=== PATIENT | female | born 1990 | race Caucasian/White ===

== ENCOUNTER 2017-10-19 21:27 | Emergency (ER) | payer MEDICAID, SELFPAY ==
[2017-10-19 21:28] VITALS: BP 109/72; PULSE 88; RESP 16; TEMP 36.8; O2SAT 99; BMI 15.5
--- NOTE | 2017-10-19 21:43 | ED.VISSUMM ---
- ER Visit Summary Date of Service: 10/19/17 Chief Complaint: Bee sting History of Present Illness: The patient is a 27 F [id number] presenting with a bee sting to her left index finger 5 hours ago at home. Denies shortness of breath or rash. Mild pain and swelling of her left index finger Physical Examination: Very superficial bee sting noted at the left index finger palmar surface. No swelling at all. No erythema or warmth. Normal distal neurovascular examination Test Results: None performed Emergency Department Course and Treatment: She was given oral prednisone and Benadryl. She will keep her hand elevated and come back if worse Treatment Plan: Oral medications Disposition: Home stable condition Impression: Initial encounter local reaction to bee sting left index finger This note was generated with [employer] dictation software. It may contain incorrect words, spelling, and punctuation that were not noted in review of the chart prior to signing ED Disposition - Plan for ED Patient: Chief Complaint: Bite Instructions: ED Bite Sting Insect Gen Allergic React Prescriptions: DiphenhydrAMINE [Benadryl] 25 mg PO TID PRN PRN #20 capsule PRN Reason: Rash/Topical Irritation Prednisone [Deltasone] 40 mg PO DAILY #10 tablet Referrals: Care Physician,No Primary [Primary Care Provider] -
[2017-10-19 21:49] VITALS: RESP 18; O2SAT 98
[2017-10-19] MEDS: DiphenhydrAMINE 25 MG Capsule PO (21:49)
[2017-10-19] MEDS: predniSONE 20 MG Tablet 60 MG PO (21:49)
== END 2017-10-19 21:55 | disposition home or self-care (01) ==
LOC: ED 21:43
PROVIDERS: Emergency Provider Emergency Medicine
DX: T63.441A Toxic effect of venom of bees, accidental (unintentional), initial encounter (principal); Y92.9 Unspecified place or not applicable
CPT/HCPCS: 99283

== ENCOUNTER 2017-10-31 08:16 | Emergency (ER) | payer MEDICAID, SELFPAY ==
[2017-10-31 08:17] VITALS: BP 121/88; PULSE 102; RESP 16; TEMP 36.3; O2SAT 99; BMI 15.4
--- NOTE | 2017-10-31 08:47 | ED.VIS.GEN ---
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 Narrative: Admits that she is coughing a lot. Nonproductive. Initially complains of dyspnea, but only because her nose is clogged. No wheezing. No fevers. Mild sore throat. No earache. No GI symptoms or abdominal discomfort or chest discomfort. Smoker. No medical problems. Past Medical History - Allergies and Home Meds Allergies/Adverse Reactions: Allergies amoxicillin Allergy (Verified 10/19/17 21:30) Hives Primary Care Physician: Care Physician,No Primary [Primary Care Provider] - Past Medical History: None Smoking Status: Current every day smoker Review of Systems General: Denies: Chills, Fever Eyes: Denies: Visual changes - bilaterally, Diplopia ENT: Reports: Rhinorrhea, Sore throat. Denies: Bilateral ear pain Cardiovascular: Denies: Chest pain Respiratory: Reports: Cough. Denies: Sputum, Dyspnea on exertion Gastrointestinal: Denies: Abdominal pain, Nausea, Vomiting Musculoskeletal: Denies: Myalgias, Arthralgias, Neck pain, Swelling, Extremity Pain Skin: Denies: Rash Neurological: Denies: Headache Physical Exam Vital Signs/Narrative: Vital Signs Temp Pulse Resp BP Pulse Ox 10/31/17 08:17 97.4 F L 102 H 16 121/88 H 99 Inital Vital Signs reviewed: Yes General: Well nourished, Well developed, - - Well-appearing, NAD Head: Normocephalic, Atraumatic Eyes: Perrl, EOMI ENT: Moist mucous membranes, No rhinorrhea, TM's clear, Nasal congestion. Negative for: Sinus tenderness Neck: Supple, Nontender, No lymphadenopathy Cardiovascular: Regular rate, Regular rhythm, No murmurs. Negative for: Tachycardia Respiratory: No distress, CTA bilaterally, Chest nontender Abdomen: Soft, Nontender, Nondistended, Normal bowel sounds Skin: Normal color, No rash Neurological: Alert, Oriented x3, Cranial nerves II-XII grossly intact, Normal Strength, Normal Sensation Psychological: Normal affect Diagnostic/Tx/Re-eval - Medical Decision Making Consistent with viral bronchitis. This is likely causing a small amount of blood. Pulse ox is good. Lungs are clear. No chest x-ray indicated at this time. Advised to follow-up and given contact. Supportive care advised. ED Disposition - Plan for ED Patient: Disposition: Home or Assisted Living Chief Complaint: Cold Sx Diagnosis: Acute bronchitis with bronchospasm Instructions: Acute Bronchitis Referrals: Shae Baker [NON-STAFF] - 1-2 Weeks (If not improving) Additional Instructions: Use either generic DayQuil/NyQuil, or Robitussin CF or generic equivalent.
== END 2017-10-31 09:15 | disposition home or self-care (01) ==
PROVIDERS: Emergency Provider Emergency Medicine
DX: J20.9 Acute bronchitis, unspecified (principal); F17.200 Nicotine dependence, unspecified, uncomplicated
CPT/HCPCS: 99282

== ENCOUNTER 2017-10-31 20:03 | Emergency (ER) | payer MEDICAID, SELFPAY ==
[2017-10-31 20:04] VITALS: BP 101/71; PULSE 118; RESP 18; TEMP 36.8; O2SAT 96; BMI 15.4
--- NOTE | 2017-10-31 21:28 | ED.DCSUM_ITS ---
- ER Visit Summary Date of Service: 10/31/17 Chief Complaint: dizzy, nausea/vomiting, URI sx History of Present Illness: The patient is a 27 F who was seen earlier today and diagnosed with a respiratory infection who presents again because she does not feel any better. She states he is to continue to have cough, rhinorrhea, congestion, sore throat and now is complaining of diffuse abdominal pain, nausea , vomiting ?3 and dysuria. She states the dysuria has been for 2 days, and she has itching and burning with urination. She did not mention this when she was seen this morning. Patient tried wini-dam-nhmtzut medications that she was instructed at her earlier visit but states she has not had any improvement. Patient denies . No medical problems. She does smoke. Physical Examination: Vital signs: afebrile, hemodynamically stable, no hypoxia on room air General: well nourished, well developed, in no distress Skin: warm, dry, no rash, no pallor HEENT: normocephalic and atraumatic; PERRL, EOMI, moist mucous membranes no posterior oropharyngeal lesions, exudate or swelling, neck is supple without meningismus, shotty anterior lymphadenopathy, no submandibular edema Cardiovascular: Tachycardic rate and rhythm without murmurs, no peripheral edema , 2+ pulses all distal extremities Respiratory: No increased work of breathing, lungs are clear to auscultation bilaterally, no rales, rhonchi or wheezing Abdominal: Abdomen is soft, nontender with normoactive bowel sounds, no guarding or rebound, no masses MSK: Moves all extremities, no deformities, normal strength Neuro: Awake and alert, oriented ?4. No facial droop, sensation and motor function intact and symmetric Test Results: Abnormal Lab Results 10/31/17 10/31/17 21:40 23:04 Urine Color Yellow Urine Clarity Cloudy Urine pH 6.0 Ur Specific [place] 1.025 Urine Protein Negative Urine Glucose (UA) 50 H Urine Ketones 5 H Urine Occult Blood Negative Urine Nitrite Negative Urine Bilirubin Negative Urine Urobilinogen 1 H Ur Leukocyte Esterase 25 H Urine RBC 0-5 SEEN Urine WBC 5-10 SEEN Ur Squamous Epith Cells 10-25 SEEN Urine Bacteria RARE Urine Mucus 0 SEEN Urine Yeast RARE POC Glucose 97 Emergency Department Course and Treatment: Patient presents for another evaluation after being seen this morning for cold symptoms. Patient states she tried ahmw-obz-dhobxwa medications today without any relief of her symptoms. We had a long discussion that it is going to take more than 1 day for her to feel better, and there is no way to take away all of her discomfort, but only to attempt to alleviate her symptoms. Patient complained of 2 days of urinary symptoms, which she did not mention this morning. Thus a urinalysis was performed. It showed glucose in the urine, thus a fingerstick glucose was performed that showed normal glucose of 97. Patient's urine was contaminated with epithelial cells and did not look concerning for acute UTI. She was given Zofran for her nausea. We discussed continued symptomatic treatment and that it will take several days for viral infections to heal, and there is no medication that will make them go away quicker. Patient left prior to receiving her discharge paperwork. Treatment Plan: [] Disposition: Discharge home Impression: Viral syndrome, subsequent visit This note was generated with [employer] dictation software. It may contain incorrect words, spelling, and punctuation that were not noted in review of the chart prior to signing ED Disposition - Plan for ED Patient: Disposition: Home or Assisted Living Chief Complaint: Dizziness Instructions: ED Viral Syndrome Referrals: Care Physician,No Primary [Primary Care Provider] - Additional Instructions: Please continue symptomatic treatment as you were advised this morning at your visit. Use Tylenol or Motrin as needed for pain or fever. Use over-the- counter cold medicines for cough, congestion and other cold symptoms. Follow- up with your doctor if you are not feeling better in 7-10 days. If you have any worsening of your condition or any new concerning symptoms, please return immediately to the emergency department for another evaluation.
[2017-10-31 21:47] LABS: Mucous, Urine 0 SEEN /hpf (<or=2+)
[2017-10-31 21:52] LABS: Color, Urine Yellow (Yellow); Glucose, Dipstick 50 mg/dl (Normal); Ketone-Dipstick 5 mg/dl (Negative); Leukocyte Esterase-Dipstick 25 /ul (Negative); Nitrite-Dipstick Negative (Negative); Occult Blood-Urine Negative /ul (Negative); Protein-Dipstick Negative (Negative); Specific Gravity, Urine 1.025 (1.002-1.030); Urine Bilirubin Dipstick Negative (Negative); Urine Clarity Cloudy (Clear); Urine Urobilinogen 1 mg/dl (Normal)
[2017-10-31 22:00] VITALS: RESP 18
[2017-10-31] MEDS: Ondansetron ODT 4 MG Tablet PO (22:04)
[2017-10-31 22:06] LABS: Red Blood Cells-Urine 0-5 SEEN /hpf (0-5); Yeast-Urine RARE /hpf (None Seen)
[2017-10-31 22:07] LABS: White Blood Cells 5-10 SEEN /hpf (0-5)
[2017-10-31 22:09] LABS: Bacteria RARE /hpf (None Seen); Squamous Epithelial Cells - UA 10-25 SEEN /hpf (5-10)
[2017-10-31 23:11] LABS: Bedside Glucose 97 mg/dL (70-110)
--- NOTE | 2017-10-31 23:20 | DCINST.ED_ITS ---
ED Disposition - Plan for ED Patient: Disposition: Home or Assisted Living Chief Complaint: Dizziness Instructions: ED Viral Syndrome Referrals: Care Physician,No Primary [Primary Care Provider] - Additional Instructions: Please continue symptomatic treatment as you were advised this morning at your visit. Use Tylenol or Motrin as needed for pain or fever. Use over-the- counter cold medicines for cough, congestion and other cold symptoms. Follow- up with your doctor if you are not feeling better in 7-10 days. If you have any worsening of your condition or any new concerning symptoms, please return immediately to the emergency department for another evaluation.
--- NOTE | 2017-10-31 23:24 | ED.RN ---
PT SEEN WALKING OUT OF ER ROOM. PT STATES TO RN I'M OUT AND LEFT THE DEPARTMENT PRIOR TO MD BEING ABLE TO GO OVER HER RESULTS AND D/C INSTRUCTIONS.
== END 2017-10-31 23:25 | disposition home or self-care (01) ==
PROVIDERS: Emergency Provider Emergency Medicine
DX: B34.9 Viral infection, unspecified (principal); R05 Cough; J34.89 Other specified disorders of nose and nasal sinuses; R09.81 Nasal congestion; J02.9 Acute pharyngitis, unspecified; R10.84 Generalized abdominal pain; R11.2 Nausea with vomiting, unspecified; R30.0 Dysuria; J20.9 Acute bronchitis, unspecified; F17.200 Nicotine dependence, unspecified, uncomplicated
CPT/HCPCS: 81001; 82962; 87086; 87088; 99282; 99284

== ENCOUNTER 2017-11-12 16:40 | Emergency (ER) | payer MEDICAID, SELFPAY ==
[2017-11-12 16:42] VITALS: BP 102/73; PULSE 82; RESP 14; TEMP 36.6; O2SAT 99; BMI 15.9
[2017-11-12 17:24] LABS: Color, Urine Yellow (Yellow); Glucose, Dipstick Normal (Normal); Ketone-Dipstick Negative (Negative); Leukocyte Esterase-Dipstick 25 /ul (Negative); Nitrite-Dipstick Negative (Negative); Occult Blood-Urine 150 /ul (Negative); Protein-Dipstick 15 mg/dl (Negative); Specific Gravity, Urine 1.025 (1.002-1.030); Urine Bilirubin Dipstick Negative (Negative); Urine Clarity Clear (Clear); Urine Urobilinogen Normal (Normal)
--- NOTE | 2017-11-12 17:24 | ED.DCSUM_ITS ---
- ER Visit Summary Date of Service: 11/12/17 Chief Complaint: Dysuria History of Present Illness: The patient is a 27 F with burning with urination for the past couple of weeks. She denies fever chills. No back pain. She thinks may be starting her period early as she is noted some spotting today. Last normal menstrual cycle was October 21. Patient denies vaginal discharge currently but does have history of trichomoniasis and gonorrhea. Physical Examination: Vital signs are unremarkable. Patient sitting upright in bed no acute distress. Heart is regular rate and rhythm. Lung sounds are clear. Abdomen is soft and nontender. Back examination reveals no CVA tenderness. Test Results: Urinalysis reveals no sign of acute infection. She has 0-5 white cells, 0-5 RBCs, 5-10 epithelials. Urine test along with gonorrhea and chlamydia have been sent. Patient does not wish to wait for those results and she will be called if there are any abnormalities. Emergency Department Course and Treatment: Results of the urinalysis are discussed. Patient will be called if there is any abnormalities on the remaining tests that are pending. Treatment Plan: [] Disposition: Discharge Impression: Dysuria This note was generated with [employer] dictation software. It may contain incorrect words, spelling, and punctuation that were not noted in review of the chart prior to signing ED Disposition - Plan for ED Patient: Chief Complaint: Complaint Referrals: Care Physician,No Primary [Primary Care Provider] -
[2017-11-12 17:54] LABS: Bacteria RARE /hpf (None Seen); Mucous, Urine RARE /hpf (<or=2+); Red Blood Cells-Urine 0-5 SEEN /hpf (0-5); Squamous Epithelial Cells - UA 5-10 SEEN /hpf (5-10); White Blood Cells 0-5 SEEN /hpf (0-5)
--- NOTE | 2017-11-12 18:11 | ED.DEP ---
ED Disposition - Plan for ED Patient: Disposition: Home or Assisted Living Chief Complaint: Complaint Instructions: ED Dysuria Uncertain Cause Referrals: Christina Bro MD [STAFF PHYSICIAN] - As Needed
[2017-11-12 18:35] LABS: Internal QC Validated? YES +Cl - CLEAR BKGD; Pregnancy, Urine Negative Negative
[2017-11-12 21:30] LABS: Chlamydia Trachomatis by PCR Negative (Negative); Neisserai gonorrhoeae by PCR Negative (Negative); Probe Check PASS; Sample Adequacy Control PASS; Specimen Processing Control PASS
== END 2017-11-12 18:27 | disposition home or self-care (01) ==
PROVIDERS: Emergency Provider Emergency Medicine
DX: R30.0 Dysuria (principal); N93.9 Abnormal uterine and vaginal bleeding, unspecified; R35.0 Frequency of micturition; Z86.19 Personal history of other infectious and parasitic diseases
CPT/HCPCS: 81001; 81025; 87491; 87591; 99282

== ENCOUNTER 2017-11-28 20:04 | Emergency (ER) | payer MEDICAID, SELFPAY ==
[2017-11-28 20:05] VITALS: BP 107/71; PULSE 99; RESP 16; TEMP 36.3; O2SAT 98; BMI 15.4
[2017-11-28 20:49] LABS: Mucous, Urine 0 SEEN /hpf (<or=2+); Red Blood Cells-Urine 0 SEEN /hpf (0-5)
[2017-11-28 20:54] LABS: Color, Urine Yellow (Yellow); Glucose, Dipstick Normal (Normal); Ketone-Dipstick Negative (Negative); Leukocyte Esterase-Dipstick 100 /ul (Negative); Nitrite-Dipstick Negative (Negative); Occult Blood-Urine 10 /ul (Negative); Protein-Dipstick Negative (Negative); Specific Gravity, Urine 1.025 (1.002-1.030); Urine Bilirubin Dipstick Negative (Negative); Urine Clarity Clear (Clear); Urine Urobilinogen Normal (Normal)
[2017-11-28 20:58] LABS: Internal QC Validated? YES +Cl - CLEAR BKGD; Pregnancy, Urine Negative Negative
[2017-11-28 21:04] LABS: Bacteria 1+ /hpf (None Seen); White Blood Cells 10-25 SEEN /hpf (0-5)
[2017-11-28 21:05] LABS: Squamous Epithelial Cells - UA 5-10 SEEN /hpf (5-10)
--- NOTE | 2017-11-28 21:28 | ED.VISSUMM ---
- ER Visit Summary Date of Service: 11/28/17 Chief Complaint: UTI History of Present Illness: The patient is a 27 F with lower abdominal pain, dysuria, and foul-smelling urine. Patient has had frequent urinary tract infections. She was recently treated with Bactrim and Flagyl. Her symptoms have seemed to recur over the last 2 months. No GI symptoms. Physical Examination: Afebrile and vital signs unremarkable. No acute distress. Alert and oriented. Abdomen soft and nontender. Back is nontender. Skin normal in color. Test Results: Urinalysis shows signs of infection. test was negative. Gonorrhea and Chlamydia testing are pending. Urine culture is pending. Emergency Department Course and Treatment: Patient has signs and symptoms of urinary tract infection. I suspect she was treated with Bactrim and was possibly resistant. I sent a culture. We will treat with Macrobid. Referred to Dr. Palmer as the patient is new to the area and does not have a primary doctor. Treatment Plan: As above Disposition: Discharged Impression: 1. UTI, cystitis This note was generated with [employer] dictation software. It may contain incorrect words, spelling, and punctuation that were not noted in review of the chart prior to signing ED Disposition - Plan for ED Patient: Chief Complaint: Complaint Referrals: Care Physician,No Primary [Primary Care Provider] -
--- NOTE | 2017-11-28 21:32 | ED.DEP ---
ED Disposition - Plan for ED Patient: Chief Complaint: Complaint Instructions: ED UTI Cystitis Female Prescriptions: Nitrofurantoin Macrocrystals [Macrobid] 100 mg PO Q12 #14 cap Referrals: Joanne Palmer MD [STAFF PHYSICIAN] -
[2017-11-28 21:39] VITALS: RESP 18
[2017-11-28] MEDS: Nitrofurantoin Macrocrystals 100 MG Capsule PO (21:39)
[2017-11-28 23:06] LABS: Chlamydia Trachomatis by PCR Negative (Negative); Neisserai gonorrhoeae by PCR Negative (Negative); Probe Check PASS; Sample Adequacy Control PASS; Specimen Processing Control PASS
== END 2017-11-28 21:40 | disposition home or self-care (01) ==
PROVIDERS: Emergency Provider Emergency Medicine
DX: N39.0 Urinary tract infection, site not specified (principal); Z87.440 Personal history of urinary (tract) infections; Z72.0 Tobacco use
CPT/HCPCS: 81001; 81025; 87086; 87088; 87186; 87491; 87591; 99283

== ENCOUNTER 2017-12-12 01:31 | Emergency (ER) | payer MEDICAID, SELFPAY ==
[2017-12-12 01:32] VITALS: BP 117/75; PULSE 89; RESP 15; TEMP 36.7; O2SAT 96; BMI 16.0
[2017-12-12 02:49] LABS: Bacteria 0 SEEN /hpf (None Seen); Color, Urine Yellow (Yellow); Glucose, Dipstick Normal (Normal); Ketone-Dipstick 5 mg/dl (Negative); Leukocyte Esterase-Dipstick 25 /ul (Negative); Mucous, Urine 0 SEEN /hpf (<or=2+); Nitrite-Dipstick Negative (Negative); Occult Blood-Urine 10 /ul (Negative); Protein-Dipstick 30 mg/dl (Negative); Red Blood Cells-Urine 0 SEEN /hpf (0-5); Urine Clarity Clear (Clear); Urine Urobilinogen 1 mg/dl (Normal); White Blood Cells 0 SEEN /hpf (0-5)
[2017-12-12 02:52] LABS: Urine Bilirubin Dipstick 1 mg/dL (Negative)
[2017-12-12 02:59] LABS: Squamous Epithelial Cells - UA 0-5 SEEN /hpf (5-10)
[2017-12-12 03:25] LABS: Probe Check PASS; Sample Adequacy Control PASS; Specimen Processing Control PASS; Trichomonas Vag DNA by PCR Negative (Negative)
[2017-12-12 03:50] LABS: Chlamydia Trachomatis by PCR Negative (Negative); Neisserai gonorrhoeae by PCR Negative (Negative); Specimen Processing Control PASS
[2017-12-12 03:51] LABS: Probe Check PASS; Sample Adequacy Control PASS
--- NOTE | 2017-12-12 04:13 | ED.VISSUMM ---
- ER Visit Summary Date of Service: 12/12/17 Chief Complaint: Vaginal itching History of Present Illness: The patient is a 27 F presenting for evaluation secondary to vaginal itching. Patient reports that over the course the last 2 months she has been dealing with issues of vaginal itching. Patient states that this came on gradually and has basically been continuous since then. Is associated with feelings of itching, hot flashes, and dysuria. Patient reports that she was seen in the emergency department was diagnosed as potentially having a urinary tract infection and went on a course of Macrobid. She reports that that did not seem to alleviate her symptoms. She went to urgent care recently and was placed on a course of Diflucan which did not seem to alleviate her symptoms. Patient denies that she is having any sort of vaginal discharge or bleeding. She denies any fevers or unintended weight loss. She states that she has not had a pelvic exam associated with this problem yet. Physical Examination: Physical exam unremarkable except for examination of the patient's pelvis. External exam shows vulvar erythema with some particulate matter stuck to the patient's vulva. Speculum exam shows some vaginal erythema with some thin whitish discharge and normal cervix. No evidence of cervicitis. Test Results: GC and chlamydia are negative, trichomonas is negative, urinalysis is negative Emergency Department Course and Treatment: Patient presented for evaluation secondary to vulvar itching that is been going on for 2 months. Testing as noted above was found to be negative. Patient at this point likely continues to have an element of undifferentiated vulvitis and vaginitis. I will place the patient on a course of steroid cream, but I recommended that she absolutely needs to follow-up with PRINCIPAL CLERK TYPIST as some vulvar cancers do present with a initial inflammatory component. She voiced understanding of this. Patient was discharged. Disposition: Discharge Impression: 1. Vaginitis and vulvitis This note was generated with [employer] dictation software. It may contain incorrect words, spelling, and punctuation that were not noted in review of the chart prior to signing ED Disposition - Plan for ED Patient: Disposition: Home or Assisted Living Chief Complaint: Female C/O Diagnosis: Vaginitis Instructions: Preventing Vaginitis, For Teens: Understanding Vaginitis Prescriptions: Flurandrenolide 60 gm TP BID #1 oint...g. Referrals: Javon Brewer MD [STAFF PHYSICIAN] - As soon as possible
--- NOTE | 2017-12-12 04:18 | ED.DCSUM_ITS ---
- ER Visit Summary Date of Service: 12/12/17 Chief Complaint: Vaginal itching History of Present Illness: The patient is a 27 F presenting for evaluation secondary to vaginal itching. Patient reports that over the course the last 2 months she has been dealing with issues of vaginal itching. Patient states that this came on gradually and has basically been continuous since then. Is associated with feelings of itching, hot flashes, and dysuria. Patient reports that she was seen in the emergency department was diagnosed as potentially having a urinary tract infection and went on a course of Macrobid. She reports that that did not seem to alleviate her symptoms. She went to urgent care recently and was placed on a course of Diflucan which did not seem to alleviate her symptoms. Patient denies that she is having any sort of vaginal discharge or bleeding. She denies any fevers or unintended weight loss. She states that she has not had a pelvic exam associated with this problem yet. Physical Examination: Physical exam unremarkable except for examination of the patient's pelvis. External exam shows vulvar erythema with some particulate matter stuck to the patient's vulva. Speculum exam shows some vaginal erythema with some thin whitish discharge and normal cervix. No evidence of cervicitis. Test Results: GC and chlamydia are negative, trichomonas is negative, urinalysis is negative Emergency Department Course and Treatment: Patient presented for evaluation secondary to vulvar itching that is been going on for 2 months. Testing as noted above was found to be negative. Patient at this point likely continues to have an element of undifferentiated vulvitis and vaginitis. I will place the patient on a course of steroid cream, but I recommended that she absolutely needs to follow-up with WILDLIFE ECOLOGIST as some vulvar cancers do present with a initial inflammatory component. She voiced understanding of this. Patient was discharged. Disposition: Discharge Impression: 1. Vaginitis and vulvitis This note was generated with [employer] dictation software. It may contain incorrect words, spelling, and punctuation that were not noted in review of the chart prior to signing ED Disposition - Plan for ED Patient: Disposition: Home or Assisted Living Chief Complaint: Female C/O Diagnosis: Vaginitis Instructions: Preventing Vaginitis, For Teens: Understanding Vaginitis Prescriptions: Flurandrenolide 60 gm TP BID #1 oint...g. Referrals: Javon Brewer MD [STAFF PHYSICIAN] - As soon as possible
== END 2017-12-12 04:35 | disposition home or self-care (01) ==
PROVIDERS: Emergency Provider Emergency Medicine; Family Provider Internal Medicine; PCP Internal Medicine
DX: N76.0 Acute vaginitis (principal); N76.2 Acute vulvitis; Z72.0 Tobacco use
CPT/HCPCS: 81001; 87491; 87591; 87661; 99282

== ENCOUNTER 2018-07-28 21:55 | Emergency (ER) | payer MEDICAID, SELFPAY ==
[2018-07-28 21:56] VITALS: BP 103/69; PULSE 89; RESP 16; TEMP 36.5; O2SAT 99; BMI 15.6
--- NOTE | 2018-07-28 22:19 | ED.DCSUM_ITS ---
- ER Visit Summary Date of Service: 07/28/18 Chief Complaint: Right-sided abdominal pain History of Present Illness: The patient is a 27 F no seen past medical or surgical history. Ab0. Quadrant. No associated nausea, vomiting or diarrhea. No dysuria. No abdominal trauma. No fever. He has had this pain before but has never had diagnosed. She is never had any abdominal surgeries other than a D&C and a tubal ligation. She denies any vaginal bleeding or discharge. Also states that she has had discomfort and numbness in her right arm right leg. Physical Examination: Well-appearing young female. Vital signs are stable and afebrile. H unremarkable. Neck nontender. Lungs to auscultation bilaterally. Heart regular rhythm no murmur. Abdomen is soft. Nondistended normal bowel sounds no peritoneal signs. Very mild tenderness on the right side of the abdomen both in the right upper quadrant and right mid. There is no ecchymosis or bruising. No distention. Normal bowel sounds. Soft. No [place] sign. No McBurney's point tenderness. No hernias or masses. Left side is nontender. Patient moving all 4 extremities. Neurovascular intact. 5-5 community outreach coordinator strength bilaterally. Dorsi and plantar flexion bilaterally. Normal DP and radial pulses. Normal range of motion. Normal strength and sensation. Back nontender. Neurologically she is awake alert with no focal motor or sensory deficits. She has normal touch sensation in both upper and lower extremities bilaterally. NIH score is 0. Test Results: CBC normal white count 6. Hemoglobin 12. Chemistries normal normal gap and creatinine. Liver and lipase normal. UA 5-10 white cells 5 epithelial cells no bacteria no nitrates I do not think this is an infection she is having a urinary tract symptoms. Serum test negative. Emergency Department Course and Treatment: Patient has nondescript right-sided abdominal pain which should be worked up. I think would be atypical for the severe gallbladder or her appendix. Exam is relatively benign. Repeat exam at 2254 patient is doing well. Abdomen is benign. Tenderness is neither in the right upper quadrant or right lower quadrant just lateral to the umbilicus. Clinically she is minimally tender at best. I do not think this is appendicitis for her gallbladder. Possibly but unlikely to be an ovarian cyst. I discussed all that with the patient. I did offer her a CAT scan but she states she would prefer not to have it done at this time. She will return if she is having increasing pain, fever or feeling worse. Instructed follow-up with her primary care physician locally. Treatment Plan: Motrin for pain. Follow-up with a local primary care physician. Disposition: Discharge Impression: Acute right-sided abdominal pain of uncertain etiology This note was generated with [employer] dictation software. It may contain incorrect words, spelling, and punctuation that were not noted in review of the chart prior to signing ED Disposition - Plan for ED Patient: Disposition: Home or Assisted Living Instructions: ED Abdominal Pain Unkn Cause Referrals: Joanne Palmer MD [Primary Care Provider] - 3-5 Days if not improving Additional Instructions: Tylenol Motrin for pain. Follow-up with not improving or return to ER feeling worse.
[2018-07-28 22:27] LABS: Bacteria 0 SEEN /hpf (None Seen); Red Blood Cells-Urine 0 SEEN /hpf (0-5)
[2018-07-28 22:29] LABS: Absolute Lymphocyte Count 2.71 X10^3/ul (0.83-4.51); Absolute Neutrophil Count 2.7 X10^3/uL (2.0-7.7); Basophil# 0.03 X10^3/uL; Basophil% 0.5 % (0-1); Eosinophils% 3.3 % (0-5); Hematocrit 36.7 % (37-47); Hemoglobin 12.4 g/dl (12.0-15.0); Lymphocyte # 2.71 X10^3/ul (4.0); Lymphocyte % 44.5 % (19-41); Mean Corp Hgb Conc 33.8 g/gl (32-36); Mean Corpuscular Volume 88.6 fL (81-99); Mean Platelet Vol. 8.9 fl (6.2-12.0); Monocyte# 0.47 X10^3/uL; Monocyte% 7.7 % (0-10); Neutrophil # 2.67 X10^3/uL (2.7-7.7); Neutrophil % 43.8 % (47-70); Platelet Count 145 K/mm3 (150-450); RBC Distribution Width CV 12.3 % (11.6-14.6); RBC Distribution Width SD 39.7 fl (35.1-43.9); Red Blood Count 4.14 M/mm3 (4.2-5.4); White Blood Count 6.1 K/mm3 (4.4-11.0)
[2018-07-28 22:30] LABS: POSITIVE COUNT NO; POSITIVE DIFFERENTIAL NO; POSITIVE MORPHOLOGY NO
[2018-07-28 22:36] LABS: Color, Urine Yellow (Yellow); Glucose, Dipstick Normal (Normal); Ketone-Dipstick Negative (Negative); Leukocyte Esterase-Dipstick 500 /ul (Negative); Nitrite-Dipstick Negative (Negative); Occult Blood-Urine Negative /ul (Negative); Protein-Dipstick Negative (Negative); Specific Gravity, Urine 1.025 (1.002-1.030); Urine Bilirubin Dipstick Negative (Negative); Urine Clarity Sl. Cloudy (Clear); Urine Urobilinogen 1 mg/dl (Normal)
[2018-07-28 22:43] LABS: Internal QC Validated? YES +Cl - CLEAR BKGD; Pregnancy, Serum, hCG Quali. NEGATIVE Negative
[2018-07-28 22:45] LABS: AST(SGOT) 13 U/L (15-37); Alanine Aminotransfer ALT/SGPT 17 U/L (13-56); Albumin, Serum 3.8 g/dL (3.2-5.0); Alkaline Phosphatase 56 U/L (45-117); Anion Gap 9 (5-15); BUN 9 mg/dL (7-18); BUN/Creat Ratio 11.8 RATIO (10-20); Bilirubin, Direct 0.14 mg/dL (0.00-0.30); Calcium,Total 8.6 mg/dL (8.5-10.1); Chloride 108 mmol/L (98-107); Creatinine, Serum 0.76 mg/dL (0.55-1.02); EST Glomerular Filtration Rate 97 mL/min (>60); Est Glom Filt Rate - Afr Amer 117 mL/min (>60); Estimated Creatinine Clearance 73.14 ml/min; Globulin 3.1 g/dL (2.2-4.2); Glucose 99 mg/dL (74-106); Lipase 111 U/L (73-393); Potassium 3.5 mmol/L (3.5-5.1); Protein, Total 6.9 g/dL (6.4-8.2); Sodium Level 143 mmol/L (136-145)
[2018-07-28 22:48] LABS: Mucous, Urine 2+ /hpf (<or=2+); Squamous Epithelial Cells - UA 5-10 SEEN /hpf (5-10); White Blood Cells 5-10 SEEN /hpf (0-5)
--- NOTE | 2018-07-28 23:00 | ED.DEP ---
ED Disposition - Plan for ED Patient: Disposition: Home or Assisted Living Instructions: ED Abdominal Pain Unkn Cause Referrals: Joanne Palmer MD [Primary Care Provider] - 3-5 Days if not improving Additional Instructions: Tylenol Motrin for pain. Follow-up with not improving or return to ER feeling worse.
[2018-07-28 23:05] VITALS: BP 110/70; PULSE 75; RESP 16; O2SAT 100
== END 2018-07-28 23:15 | disposition home or self-care (01) ==
PROVIDERS: Emergency Provider Emergency Medicine; Family Provider Internal Medicine; PCP Internal Medicine
DX: R10.9 Unspecified abdominal pain (principal); R20.0 Anesthesia of skin; Z72.0 Tobacco use
CPT/HCPCS: 80048; 80076; 81001; 83690; 84703; 85025; 99282; A4216